=== PATIENT | male | born 1990 | race Caucasian/White ===

== ENCOUNTER 2016-06-13 13:54 | Emergency (ER) | payer OTHER ==
[~2016-06-13] VITALS: Ht 175.3 cm; Wt 96.6 kg
[2016-06-13 13:54] VITALS: BP 148/80
[~2016-06-13 13:54] MED LIST: AMOX500C PO; HYDR-79 PO
--- NOTE | 2016-06-13 14:51 | RAD ---
Indication: Left knee pain for 2 days with no known injury. Technique: 4 views of the left knee are submitted for review. No comparison is available. Findings: There is no fracture or dislocation. There is no joint effusion or soft tissue swelling. Impression: Negative for fracture.
--- NOTE | 2016-06-13 15:05 | PHYS DOC ---
General Chief Complaint: KNEE INJURY Stated Complaint: LEFT KNEE PAIN Time Seen by MD: 14:07 Source: patient Exam Limitations: no limitations Problems: History of Present Illness Initial Comments Pt is 26/M to ED c/o L knee pain. [place] and may have overused knee, denies other specific trauma. Past few days L knee pain/stiffness, does not localize pain. No pops/clicks or legs giving out, no numbness/tingling/weakness/ radiating sx. OTC no help, pt no PCP. Onset: last week Severity: mild Pain/Injury Location: left knee Method of Injury: unknown Modifying Factors: worse with jarring, worse with movement, improves with rest Allergies: Coded Allergies: prednisone (Verified Allergy, Unknown, 01/17/16) Past Medical History Medical History: no pertinent history Surgical History: noncontributory Social History Smoker: quit less than 1 year Alcohol: occasionally Drugs: none Review of Systems Constitutional: denies chills, denies fever Respiratory: denies cough, denies shortness of breath Cardiovascular: denies chest pain, denies palpitations Gastrointestinal: denies nausea, denies vomiting Musculoskeletal: see HPI Psychiatric/Neurological: see HPI Physical Exam General Appearance: WD/WN, no apparent distress Neck: non-tender, supple Cardiovascular/Respiratory: normal peripheral pulses, no respiratory distress Back: no CVA tenderness, no vertebral tenderness Knees: left knee other (slight effusion w/joint line TTP ligs/tendons intact no bony TTP. Keeps slightly bent for comfort) Neurologic/Tendon: normal sensation, normal motor functions, normal tendon functions, responds to pain, no evidence tendon injury Psychiatric: alert, oriented x 3 Skin: normal color, warm/dry Orders, Labs, Meds L Knee: no acute osseous abnormal NV intact after splint placed Departure Time of Disposition: 15:02 Disposition: 01 HOME, SELF-CARE Diagnosis: Left Knee Effusion Condition: GOOD Patient Instructions: Crutch Use, [id number], Knee Effusion, [id number], RICE - Routine Care for Injuries, [id number] Additional Instructions: Wear splint and use crutches as needed. RICE, see handout. Rx: naprosyn, norco 5mg #15 You will need to follow up with a doctor for recheck and further evaluation (MRI , orthopedics) if needed. Per your request ED staff will give you a list of local doctors. Call tomorrow to schedule follow up appointment. Return to ED with new or changing symptoms SIMRAN SANTOS DO Jun 13, 2016 15:05
[2016-06-13] MEDS ORDERED: HYDR-971 PO (15:08)
[2016-06-13] MEDS ORDERED: NAPR500T PO (15:08)
== END 2016-06-13 15:15 | disposition home or self-care (01) ==
LOC: ER 13:54
DX: M25.462 Effusion, left knee (principal); Z87.891 Personal history of nicotine dependence; Z88.8 Allergy status to other drugs, medicaments and biological substances
CPT/HCPCS: 29505; 73564; 99284-25

== ENCOUNTER → 2016-10-28 | Outpatient (CLI) | payer OTHER ==
[~2016-10-28] MED LIST changes: +HYDR-971 PO; +NAPR500T PO
--- NOTE | 2016-10-28 09:59 | RAD ---
Cervical spine, 3 views, 10/28/2016: History: Neck pain No fracture or dislocation is identified. The intervertebral disc spaces are well-maintained. The prevertebral soft tissues are unremarkable. IMPRESSION: No significant abnormality is detected.
== END | disposition home or self-care (01) ==
LOC: DXRADRC 09:27
PROVIDERS: ATTEND Family Medicine
DX: M54.2 Cervicalgia (principal)
CPT/HCPCS: 72040

== ENCOUNTER 2019-07-02 20:30 | Emergency (ER) | payer BC, OTHER ==
[~2019-07-02] VITALS: Ht 175.3 cm; Wt 96.3 kg
[~2019-07-02 20:30] MED LIST changes: +HYDR-1179 PO; +HYDR-3165 PO; -HYDR-79 PO; -HYDR-971 PO; +NAPR-683 PO; -NAPR500T PO
[2019-07-02 20:43] VITALS: BP 144/85
[2019-07-02] MEDS ORDERED: PENI500T PO (21:18)
--- NOTE | 2019-07-02 21:19 | PHYS DOC ---
Past History Past Medical History: Hypertension Past Surgical History: Tonsillectomy, Other Additional Past Surgical Histo: root canal Additional Smoking Information: vape Alcohol Use: Rarely Drug Use: None Social History Narrative: reports occasional use Adult General Chief Complaint Chief Complaint: DENTAL PROBLEM HPI HPI Patient is a 29-year-old otherwise healthy male who presents with some pain in his left upper molar area over the last 2 nights. He denies any facial swelling. No fever no trismus. He studies had a problem with cavities in the past.[] Review of Systems Review of Systems Constitutional: Denies fever or chills [] Eyes: Denies change in visual acuity, redness, or eye pain [] HENT: Dental pain per history of present illness[] Respiratory: Denies cough or shortness of breath [] Cardiovascular: No additional information not addressed in HPI [] GI: Denies abdominal pain, nausea, vomiting, bloody stools or diarrhea [] : Denies dysuria or hematuria [] Musculoskeletal: Denies back pain or joint pain [] Integument: Denies rash or skin lesions [] Neurologic: Denies headache, focal weakness or sensory changes [] Endocrine: Denies polyuria or polydipsia [] All other systems were reviewed and found to be within normal limits, except as documented in this note. Allergies Allergies Allergies Coded Allergies Type Severity Reaction Last Updated Verified prednisone Allergy Unknown 01/17/16 Yes Physical Exam Physical Exam Constitutional: Well developed, well nourished, mild distress, non-toxic appearance. [] HENT: Normocephalic, atraumatic, bilateral external ears normal, oropharynx moist, widespread dental caries most pronounced left upper first molar no surrounding gingival erythema or obvious abscess. [] Eyes: PERRLA, EOMI, conjunctiva normal, no discharge. [] Neck: Normal range of motion, no tenderness, supple, no stridor. [] Cardiovascular:Heart rate regular rhythm, no murmur [] Lungs & Thorax: Bilateral breath sounds clear to auscultation [] Abdomen: Bowel sounds normal, soft, no tenderness, no masses, no pulsatile masses. [] Skin: Warm, dry, no erythema, no rash. [] Back: No tenderness, no CVA tenderness. [] Extremities: No tenderness, no cyanosis, no clubbing, ROM intact, no edema. [] Neurologic: Alert and oriented X 3, normal motor function, normal sensory function, no focal deficits noted. [] Psychologic: Affect normal, judgement normal, mood normal. [] Current Patient Data Vital Signs Vital Signs Date Time Temp Pulse Resp B/P (MAP) Pulse Ox O2 Delivery O2 Flow Rate FiO2 07/02/19 20:43 98.1 82 16 144/85 (104) 97 Room Air EKG EKG [] Radiology/Procedures Radiology/Procedures [] Course & Med Decision Making Course & Med Decision Making Pertinent Labs and Imaging studies reviewed. (See chart for details) [] Dragon Disclaimer Dragon Disclaimer This electronic medical record was generated, in whole or in part, using a voice recognition dictation system. Departure Departure: Impression: Primary Impression: Pain, dental Additional Impression: Pain due to dental caries Disposition: HOME, SELF-CARE Condition: STABLE Referrals: YANA BAEZA MD (PCP) Patient Instructions: Dental Caries Additional Instructions: Tylenol or Motrin for the discomfort. Please take the antibiotics as directed Scripts Penicillin V Potassium (PENICILLIN V POTASSIUM) 500 Mg Tablet 1 TAB PO QID for dental infection, #40 TAB Prov: NORA DUVALL DO 07/02/19 Problem Qualifiers NORA DUVALL DO Jul 02, 2019 21:19
== END 2019-07-02 20:43 | disposition home or self-care (01) ==
LOC: ER 20:30
DX: K02.9 Dental caries, unspecified (principal); I10 Essential (primary) hypertension; F17.220 Nicotine dependence, chewing tobacco, uncomplicated; Z88.8 Allergy status to other drugs, medicaments and biological substances
CPT/HCPCS: 99283

== ENCOUNTER → 2019-09-14 | Outpatient (CLI) | payer BC ==
[~2019-09-14] MED LIST changes: +PENI500T PO
--- NOTE | 2019-09-14 13:23 | RAD ---
PROCEDURE: KUB STUDY DATE: 09/14/2019 CLINICAL INDICATION / HISTORY: Acute flank pain on the right side concern for kidney stone. TECHNIQUE: Single AP image of the abdomen was obtained. COMPARISON: None FINDINGS: The lung bases are clear. A nonobstructive bowel gas pattern is present. Moderate stool throughout the visualized large bowel. No organomegaly or pathologic calcifications are identified. No acute osseous abnormality. IMPRESSION: Moderate stool throughout the large bowel. Correlate for constipation. Otherwise no acute abdominal process. In particular, no radiopaque stones in the kidneys identified. Electronically signed by: Audrey Quintanilla MD (09/14/2019 1:20 PM) [id number]
== END ==
LOC: PMG 10:37
PROVIDERS: ATTEND Physician Assistant Medical
DX: R10.10 Upper abdominal pain, unspecified (principal); K59.00 Constipation, unspecified
CPT/HCPCS: 74018